=== PATIENT | male | born 1980 | race Hispanic/Latino ===

== ENCOUNTER 2018-07-04 18:22 | Emergency (ER) | payer BC ==
--- OUTSIDE RECORDS SUMMARY | 2018-07-04 18:25 | XMS REPORT ---
:1980 Author Organization eClinicalWorks Care Team Providers Name Role Phone Tidwell, Na Provider Role Unavailable Allergies, Adverse Reactions, Alerts Substance Reaction Event Type Erythromycin Info Not Available Drug Allergy Problems Problem Type Condition Code Onset Dates Condition Status Problem Fatigue R53.83 Active Problem Hyperlipidemia E78.5 Active Problem GERD (gastroesophageal reflux K21.9 Active disease) Problem ADHD (attention deficit F90.2 Active hyperactivity disorder), combined type Problem Other chronic pain G89.29 Active Problem ADD (attention deficit disorder) F90.9 Active Problem Acquired hypothyroidism E03.9 Active Problem ADHD (attention deficit F90.9 Active hyperactivity disorder) Problem Dorsalgia, unspecified M54.9 Active Problem Essential hypertension I10 Active Problem Elevated blood pressure reading in R03.0 Active office with white coat syndrome, without diagnosis of hypertension Problem Cigarette smoker F17.210 Active Problem Multiple joint pain M25.50 Active Assessment ADD (attention deficit disorder) F90.9 Active Problem Obese E66.9 Active Medications Medication Code Code Instructions Start End Status Dosage System Date Date Pravastatin [facility] [place] 76878926435 40 MG Orally Active 1 tablet Sodium Once a day Vyvanse [facility] [place] 74745971970 30 MG Orally Active 1 capsule Once a day in the morning Ultram [facility] [place] 10766092601 50 MG Orally Active 1 tablet every 6 hrs as needed Lisinopril [facility] [place] 24735801137 10 MG Orally Active 1 tablet Once a day Pravachol [facility] [place] 45476010112 NA Active 1 EACH ONCE A DAY (AT BEDTIME) Lisinopril [facility] [place] 37172242501 NA Active 1 TAB PO ONCE A DAY IN AM Protonix ND 17211077792 40 MG Orally Active 1 tablet Once a day Results No Known Results Summary Purpose eClinicalWorks Submission
--- OUTSIDE RECORDS SUMMARY | 2018-07-04 18:25 | XMS REPORT ---
:1980 Author Organization eClinicalWorks Care Team Providers Name Role Phone Tidwell, Laurie Provider Role Unavailable Allergies, Adverse Reactions, Alerts [...] of hypertension Problem Cigarette smoker F17.210 Active Assessment ADHD (attention deficit F90.9 Active hyperactivity disorder) Problem Multiple joint pain M25.50 Active Problem Obese E66.9 Active Medications Medication Code Code Instructions Start End Status Dosage System Date Date Lisinopril [facility] 21649860558 10 MG Orally Active 1 tablet Once a day Pravastatin [facility] 21757140796 40 MG Orally Active 1 tablet Sodium Once a day Lisinopril [facility] 74015920315 NA Active 1 TAB PO ONCE A DAY IN AM Pravachol [facility] 61815334798 NA Active 1 EACH ONCE A DAY (AT BEDTIME) Vyvanse [facility] 39039552087 40 MG Orally February 12, Active 1 capsule Once a day 2017 in the morning Vyvanse [facility] 32417719200 30 MG Orally Active 1 capsule Once a day in the morning Protonix ND 80631673515 40 MG Orally Active 1 tablet Once a day Ultram [facility] 91212244713 50 MG Orally Active 1 tablet every 6 hrs as needed Results No Known Results Summary Purpose eClinicalWorks Submission
--- OUTSIDE RECORDS SUMMARY | 2018-07-04 18:25 | XMS REPORT ---
:1980 Author Organization eClinicalWorks Care Team Providers Name Role Phone Tidwell, Na Provider Role Unavailable Allergies, Adverse Reactions, Alerts Substance Reaction Event Type Erythromycin Info Not Available Drug Allergy Problems Problem Type Condition Code Onset Dates Condition Status Problem Fatigue R53.83 Active Problem Hyperlipidemia E78.5 Active Problem GERD (gastroesophageal reflux K21.9 Active disease) Problem Other chronic pain G89.29 Active Problem Dorsalgia, unspecified M54.9 Active Problem Essential hypertension I10 Active Problem Cigarette smoker F17.210 Active Problem Elevated blood pressure reading in R03.0 Active office with white coat syndrome, without diagnosis of hypertension Problem Acquired hypothyroidism E03.9 Active Problem ADHD (attention deficit F90.9 Active hyperactivity disorder) Assessment Dorsalgia, unspecified M54.9 Active Assessment Other chronic pain G89.29 Active Assessment Essential hypertension I10 Active Assessment Hyperlipidemia E78.5 Active Assessment Acquired hypothyroidism E03.9 Active Problem Multiple joint pain M25.50 Active Assessment ADHD (attention deficit F90.9 Active hyperactivity disorder) Problem Obese E66.9 Active Medications Medication Code Code Instructions Start End Status Dosage System Date [facility] 23286275545 30 MG Orally Active 1 capsule Once a day in the morning Protonix [facility] 26111865146 40 MG Orally Active 1 tablet Once a day Lisinopril [facility] 28514699671 10 MG Orally Active 1 tablet Once a day Pravastatin [facility] 19104410125 40 MG Orally Active 1 tablet Sodium Once a day Ultram [facility] 75627945706 50 MG Orally Active 1 tablet every 6 hrs as needed Levothyroxine ND 50686376406 100 MCG Orally Inactive 1 tablet Sodium Once a day on an empty stomach in the morning Results No Known Results Summary Purpose eClinicalWorks Submission
--- OUTSIDE RECORDS SUMMARY | 2018-07-04 18:25 | XMS REPORT ---
[...] smoker F17.210 Active Assessment ADHD (attention deficit F90.2 Active hyperactivity disorder), combined type Problem Multiple joint pain M25.50 Active Problem Obese E66.9 Active Medications Medication Code Code Instructions Start End Status Dosage System Date Date Pravastatin ND 66102699087 40 MG Orally Active 1 tablet Sodium Once a day Vyvanse [facility] 31565766552 30 MG Orally Active 1 capsule Once a day in the morning Lisinopril ND 53075980437 NA Active 1 TAB PO ONCE A DAY IN AM Vyvanse [facility] 85849417297 40 MG Orally February 12, Active 1 capsule Once a day 2017 in the morning Ultram ND 16964916778 50 MG Orally Active 1 tablet every 6 hrs as needed Protonix ND 51842148116 40 MG Orally Active 1 tablet Once a day Lisinopril ND 25044261000 10 MG Orally Active 1 tablet Once a day Pravachol ND 74597045844 NA Active 1 EACH ONCE A DAY (AT BEDTIME) Results No Known Results Summary Purpose eClinicalWorks Submission
--- OUTSIDE RECORDS SUMMARY | 2018-07-04 18:25 | XMS REPORT ---
[...] pain M25.50 Active Assessment ADHD (attention deficit F90.2 Active hyperactivity disorder), combined type Problem Obese E66.9 Active Medications Medication Code Code Instructions Start End Status Dosage System Date Date Ultram [facility] 04848220966 50 MG Orally Active 1 tablet every 6 hrs as needed Lisinopril [facility] 17844056874 10 MG Orally Active 1 tablet Once a day Vyvanse [facility] 46966826354 30 MG Orally Inactive 1 capsule Once a day in the morning Lisinopril [facility] 61594925793 NA Active 1 TAB PO ONCE A DAY IN AM Pravastatin ND 30359282538 40 MG Orally Active 1 tablet Sodium Once a day Protonix ND 12516771275 40 MG Orally Active 1 tablet Once a day Vyvanse [facility] 49445971869 40 MG Orally February 08, Active 1 capsule Once a day 2017 in the morning Pravachol ND 24103043012 NA Active 1 EACH ONCE A DAY (AT BEDTIME) Results No Known Results Summary Purpose eClinicalWorks Submission
--- OUTSIDE RECORDS SUMMARY | 2018-07-04 18:25 | XMS REPORT ---
[...] M54.9 Active Problem Essential hypertension I10 Active Assessment ADHD (attention deficit F90.9 Active hyperactivity disorder) Assessment Essential hypertension I10 Active Problem Elevated blood pressure reading in R03.0 Active office with white coat syndrome, without diagnosis of hypertension Problem Cigarette smoker F17.210 Active Assessment Hyperlipidemia E78.5 Active Problem Multiple joint pain M25.50 Active Problem Obese E66.9 Active Medications Medication Code Code Instructions Start End Status Dosage System Date Date Pravachol [facility] 03138887016 NA Active 1 EACH ONCE A DAY (AT BEDTIME) Lisinopril [facility] 50165771915 10 MG Orally Active 1 tablet Once a day Ultram [facility] 37104446675 50 MG Orally Active 1 tablet every 6 hrs as needed Protonix ND 07258117558 40 MG Orally Active 1 tablet Once a day Lisinopril ND 42759087723 NA Active 1 TAB PO ONCE A DAY IN AM Vyvanse ND 10068010522 30 MG Orally Active 1 capsule Once a day in the morning Vyvanse ND 06130634031 40 MG Orally February 12, Active 1 capsule Once a day 2017 in the morning Pravastatin ND 85166511206 40 MG Orally Active 1 tablet Sodium Once a day Results No Known Results Summary Purpose eClinicalWorks Submission
[2018-07-04] MEDS ORDERED: DIPHENHYDRAMINE 25 MG TAB/CAP ONE (18:50)
[2018-07-04] MEDS ORDERED: predniSONE 20 MG TAB ONE (18:51)
[2018-07-04] MEDS ORDERED: FAMOTIDINE 20 MG TAB ONE (18:51)
--- NOTE | 2018-07-04 20:36 | EDPHYS ---
Physician Documentation [facility] Name: Chano Zacarias Age: 38 yrs Sex: Male : 1980 Arrival Date: 07/04/2018 Time: 18:27 Bed 5 Private MD: Laurie Tidwell ED Physician Mo Burrell HPI: 07/04 18:38 This 38 yrs old Male presents to ER via Ambulatory with complaints of Rash. cp 18:38 The patient's rash thought to be caused by hives. cp 18:38 The rash is located on the body diffusely. Onset: The symptoms/episode began/occurred cp last night. Associated signs and symptoms: Pertinent positives: burning sensation, Pertinent negatives: difficulty breathing, fever, vomiting. Severity of symptoms: in the emergency department the symptoms are unchanged despite home interventions. Treatment given at home: Benadryl. Historical: - Allergies: 18:31 Droperidol; aj 18:31 erythromycin base; aj - Home Meds: 18:31 pravastatin oral oral [Active]; Lisinopril Oral [Active]; aj - PMHx: 18:31 High Cholesterol; Hypertension; Hypothyroidism; aj - PSHx: 18:31 None; aj - Immunization history:: Adult Immunizations up to date. - Social history:: Smoking status: Patient uses tobacco products, smokes one pack cigarettes per day. - Ebola Screening: : Patient negative for fever greater than or equal to 101.5 degrees Fahrenheit, and additional compatible Ebola Virus Disease symptoms Patient denies exposure to infectious person Patient denies travel to an Ebola-affected area in the 21 days before illness onset No symptoms or risks identified at this time. ROS: 18:45 Constitutional: Negative for body aches, chills, fever, poor PO intake. cp 18:45 Eyes: Negative for injury, pain, redness, and discharge. cp 18:45 Cardiovascular: Negative for chest pain, edema, palpitations. cp 18:45 ENT: Negative for drainage from ear(s), rhinorrhea, sinus congestion, sore throat, cp difficulty swallowing, difficulty handling secretions. 18:45 Respiratory: Negative for cough, shortness of breath, wheezing. 18:45 Abdomen/GI: Negative for abdominal pain, nausea, vomiting, and diarrhea. 18:45 : Negative for urinary symptoms. 18:45 Skin: Positive for rash, diffusely. 18:45 Neuro: Negative for altered mental status, dizziness, headache, weakness. 18:45 All other systems are negative. Exam: 18:50 Constitutional: The patient appears in no acute distress, alert, awake, non-toxic, well cp developed, well nourished. 18:50 Head/Face: Normocephalic, atraumatic. cp 18:50 Eyes: Periorbital structures: appear normal, Pupils: equal, round, and reactive to light and accomodation, Extraocular movements: intact throughout, Conjunctiva: normal, no exudate, no injection, Sclera: no appreciated abnormality, Lids and lashes: appear normal, bilaterally. 18:50 ENT: External ear(s): are unremarkable, Ear canal(s): are normal, clear, TM's: bulging, is not appreciated, bilaterally, dullness, bilaterally, erythema, is not appreciated, bilaterally, Nose: is normal, Mouth: Lips: moist, Oral mucosa: pink and intact, moist, Posterior pharynx: is normal, airway is patent, no erythema, no exudate, swelling, is not appreciated. 18:50 Neck: ROM/movement: is normal, is supple, without pain, no range of motions limitations, no meningismus, no nuchal rigidity. 18:50 Chest/axilla: Palpation: is normal, no crepitus, no tenderness. 18:50 Cardiovascular: Rate: tachycardic, Rhythm: regular, Heart sounds: murmur, not appreciated, Edema: is not appreciated, JVD: is not appreciated. 18:50 Respiratory: the patient does not display signs of respiratory distress, Respirations: normal, no use of accessory muscles, no retractions, no splinting, no tachypnea, labored breathing, is not present, Breath sounds: are clear throughout, no decreased breath sounds, no stridor, no wheezing. 18:50 Abdomen/GI: Inspection: abdomen appears normal, Bowel sounds: active, all quadrants, Palpation: abdomen is soft and non-tender, in all quadrants, rebound tenderness, is not appreciated, voluntary guarding, is not appreciated, involuntary guarding, is not appreciated. 18:50 Skin: consistent with hives, and is diffusely located. 18:50 Neuro: Orientation: to person, place \T\ time. Mentation: is normal, Cerebellar function: is grossly normal, Motor: moves all fours, strength is normal, Sensation: is normal. Vital Signs: 18:31 BP 152 / 100; Pulse 115; Resp 20; Temp 98.0; Pulse Ox 98% on R/A; Weight 95.25 kg; aj Height 5 ft. 6 in. (167.64 cm); 21:01 BP 144 / 95; Pulse 92; Resp 18; Pulse Ox 96% on R/A; Pain 0/10; aa1 18:31 Body Mass Index 33.89 (95.25 kg, 167.64 cm) aj MDM: 18:37 Patient medically screened. cp 20:34 Data reviewed: vital signs, nurses notes, VSS. Patient reports symptoms improved, and cp as a result, I will discharge patient. Administered Medications: 18:38 Drug: predniSONE 60 mg Route: PO; hj 18:46 Follow up: Response: No adverse reaction hj 21:00 Follow up: Response: Marked relief of symptoms aa1 18:38 Drug: Benadryl 25 mg Route: PO; hj 18:46 Follow up: Response: No adverse reaction hj 21:00 Follow up: Response: Marked relief of symptoms aa1 18:38 Drug: Pepcid 20 mg Route: PO; hj 18:46 Follow up: Response: No adverse reaction hj 21:00 Follow up: Response: Marked relief of symptoms aa1 Disposition: 07/04/18 20:35 Discharged to Home. Impression: Hives. - Condition is Stable. - Discharge Instructions: Hives. - Prescriptions for Pepcid 20 mg Oral Tablet - take 1 tablet by ORAL route every 12 hours for 5 days; 10 tablet. Prednisone 20 mg Oral Tablet - take 2 tablet by ORAL route once daily for 5 days; 10 tablet. - Medication Reconciliation Form, Thank You Letter, Antibiotic Education, Prescription Opioid Use form. - Follow up: Private Physician; When: 1 - 2 days; Reason: Recheck today's complaints. - Problem is new. - Symptoms have improved. Signatures: Florencia Smart RN RN aa1 Loretta Burger RN RN aj Mu Bridges RN RN hj Troy Flores PA PA cp Corrections: (The following items were deleted from the chart) 21:03 20:35 07/04/2018 20:35 Discharged to Home. Impression: Hives. Condition is Stable. aa1 Forms are Medication Reconciliation Form, Thank You Letter, Antibiotic Education, Prescription Opioid Use. Follow up: Private Physician; When: 1 - 2 days; Reason: Recheck today's complaints. Problem is new. Symptoms have improved. cp
--- NOTE | 2018-07-04 20:36 | ER ---
Nurse's Notes [facility] Name: Chano Zacarias Age: 38 yrs Sex: Male : 1980 Arrival Date: 07/04/2018 Time: 18:27 Bed 5 Private MD: Laurie Tidwell Diagnosis: Hives Presentation: 07/04 18:29 Presenting complaint: Patient states: Reports hives since last night. Administered aj Benadryl 25 mg PO at 1600 today. Transition of care: patient was not received from another setting of care. Onset of symptoms was July 03, 2018. Risk Assessment: Do you want to hurt yourself or someone else? Patient reports no desire to harm self or others. Initial Sepsis Screen: Does the patient meet any 2 criteria? No. Patient's initial sepsis screen is negative. Does the patient have a suspected source of infection? No. Patient's initial sepsis screen is negative. 18:29 Method Of Arrival: Ambulatory aj 18:29 Acuity: SCARLET 2 aj 18:30 Onset: The symptoms/episode began/occurred yesterday. Anaphylaxis evaluation, no signs aj or symptoms of anaphylaxis were noted. Care prior to arrival: None. Triage Assessment: 18:31 General: Appears in no apparent distress. comfortable, Behavior is calm, cooperative, aj appropriate for age. Pain: Denies pain. EENT: Reports itching in throat. Neuro: Level of Consciousness is awake, alert, obeys commands, Oriented to person, place, time, situation, Appropriate for age. Respiratory: Airway is patent Respiratory effort is even, unlabored, Respiratory pattern is regular, symmetrical, Patient clearing throat. Derm: Skin is normal, Rash noted that is macular, itchy, raised. Historical: - Allergies: 18:31 Droperidol; aj 18:31 erythromycin base; aj - Home Meds: 18:31 pravastatin oral oral [Active]; Lisinopril Oral [Active]; aj - PMHx: 18:31 High Cholesterol; Hypertension; Hypothyroidism; aj - PSHx: 18:31 None; aj - Immunization history:: Adult Immunizations up to date. - Social history:: Smoking status: Patient uses tobacco products, smokes one pack cigarettes per day. - Ebola Screening: : Patient negative for fever greater than or equal to 101.5 degrees Fahrenheit, and additional compatible Ebola Virus Disease symptoms Patient denies exposure to infectious person Patient denies travel to an Ebola-affected area in the 21 days before illness onset No symptoms or risks identified at this time. Screenin:37 Abuse screen: Denies threats or abuse. Denies injuries from another. Nutritional hj screening: No deficits noted. Tuberculosis screening: No symptoms or risk factors identified. Fall Risk None identified. Assessment: 18:37 Respiratory: Airway is patent Respiratory effort is even, unlabored, Respiratory hj pattern is regular, symmetrical, Breath sounds are clear. 18:37 General: Appears in no apparent distress. uncomfortable, Behavior is calm, cooperative, hj appropriate for age. Pain: Denies pain. Neuro: Level of Consciousness is awake, alert, obeys commands, Oriented to person, place, time, situation, Appropriate for age. Cardiovascular: Capillary refill < 3 seconds Patient's skin is warm and dry. GI: No signs and/or symptoms were reported involving the gastrointestinal system. : No signs and/or symptoms were reported regarding the genitourinary system. EENT: No signs and/or symptoms were reported regarding the EENT system. Derm: Reports rash. Musculoskeletal: No signs and/or symptoms reported regarding the musculoskeletal system. 18:53 Reassessment: awaiting POC:. hj 19:30 Reassessment: Patient appears in no apparent distress at this time. Patient and/or aa1 family updated on plan of care and expected duration. Pain level reassessed. Patient is alert, oriented x 3, equal unlabored respirations, skin warm/dry/pink. Per PA, will monitor pt for improvement and d/c when appropriate. 21:01 Reassessment: Patient appears in no apparent distress at this time. Patient is alert, aa1 oriented x 3, equal unlabored respirations, skin warm/dry/pink. Pt reports feeling much better. Rash greatly improved. Discussed d/c \T\ f/u instructions with pt; denies questions or concerns at this time Patient states feeling better. Patient states symptoms have improved. Vital Signs: 18:31 BP 152 / 100; Pulse 115; Resp 20; Temp 98.0; Pulse Ox 98% on R/A; Weight 95.25 kg; aj Height 5 ft. 6 in. (167.64 cm); 21:01 BP 144 / 95; Pulse 92; Resp 18; Pulse Ox 96% on R/A; Pain 0/10; aa1 18:31 Body Mass Index 33.89 (95.25 kg, 167.64 cm) ED Course: 18:27 Patient arrived in ED. mr 18:28 Laurie Tidwell MD is Private Physician. mr 18:30 Triage completed. aj 18:31 Arm band placed on left wrist. Patient placed in an exam room. aj 18:33 Mu Bridges RN is Primary Nurse. hj 18:35 Troy Flores PA is PHCP. cp 18:35 Mo Burrell MD is Attending Physician. cp 18:37 Patient has correct armband on for positive identification. Placed in gown. Bed in low hj position. Call light in reach. Side rails up X 1. Adult w/ patient. 21:01 No provider procedures requiring assistance completed. Patient did not have IV access aa1 during this emergency room visit. Administered Medications: 18:38 Drug: predniSONE 60 mg Route: PO; hj 18:46 Follow up: Response: No adverse reaction hj 21:00 Follow up: Response: Marked relief of symptoms aa1 18:38 Drug: Benadryl 25 mg Route: PO; hj 18:46 Follow up: Response: No adverse reaction hj 21:00 Follow up: Response: Marked relief of symptoms aa1 18:38 Drug: Pepcid 20 mg Route: PO; hj 18:46 Follow up: Response: No adverse reaction hj 21:00 Follow up: Response: Marked relief of symptoms aa1 Outcome: 20:35 Discharge ordered by MD. cp 21:01 Discharged to home ambulatory, with significant other. aa1 21:01 Condition: good 21:01 Discharge instructions given to patient, significant other, Instructed on discharge instructions, follow up and referral plans. medication usage, Demonstrated understanding of instructions, follow-up care, medications, Prescriptions given X 2. 21:03 Patient left the ED. aa1 Signatures: Florencia Smart RN RN aa1 Loretta Burger RN RN aj Rivera, Mary mr Mu Bridges RN RN hj Page, Corey, PA PA cp
[2018-07-04 21:30] VITALS: TEMP 98
[2018-07-04 21:31] VITALS: BP 144/95; O2SAT 96
== END 2018-07-04 21:03 | disposition home or self-care (01) ==
LOC: ER 18:22
DX: L50.9 Urticaria, unspecified (principal); E78.00 Pure hypercholesterolemia, unspecified; I10 Essential (primary) hypertension; E03.9 Hypothyroidism, unspecified; F17.210 Nicotine dependence, cigarettes, uncomplicated; Z79.899 Other long term (current) drug therapy
CPT/HCPCS: 99283; J7512

== ENCOUNTER 2019-05-15 22:11 | Emergency (ER) | payer BC ==
--- OUTSIDE RECORDS SUMMARY | 2019-05-15 22:14 | XMS REPORT ---
:1980 Author Organization eClinicalWorks Care Team Providers Name Role Phone Tidwell, Na Provider Role Unavailable Allergies No Known Allergies Problems Problem Type Condition Code Onset Dates Condition Status Problem Hyperlipidemia E78.5 Active Problem Acquired hypothyroidism E03.9 Active Problem ADHD (attention deficit F90.9 Active hyperactivity disorder) Problem Body mass index (BMI) of 36.0-36.9 Z68.36 Active in adult Problem ADD (attention deficit disorder) F90.9 Active Problem Morbid (severe) obesity due to E66.01 Active excess calories Problem Dorsalgia, unspecified M54.9 Active Problem Essential hypertension I10 Active Problem ADHD (attention deficit F90.2 Active hyperactivity disorder), combined type Problem Other chronic pain G89.29 Active Assessment ADHD (attention deficit F90.9 Active hyperactivity disorder) Problem Multiple joint pain M25.50 Active Problem Obese E66.9 Active Problem Elevated blood pressure reading in R03.0 Active office with white coat syndrome, without diagnosis of hypertension Problem Fatigue R53.83 Active Problem Cigarette smoker F17.210 Active Problem GERD (gastroesophageal reflux K21.9 Active disease) Medications Medication Code Code Instructions Start End Status Dosage System Date Date Rosuvastatin [facility] 74409834373 10 MG Orally Apr 01, Active 1 tablet Calcium Once a day 2018 Metoprolol ND 25026650916 50 MG Orally Active 1 tablet Tartrate Twice a day with food Bystolic ND 09185391085 10 MG Orally Active 1 tablet Once a day Ultram [facility] 59128404958 50 MG Orally Active 1 tablet every 6 hrs as needed Vyvanse ND 32827555778 40 MG Orally May 13, Active 1 capsule Once a day 2019 in the morning Lisinopril ND 68523918868 10 MG Orally Active 1 tablet Once a day Protonix [facility] 60284335030 40 MG Orally Active 1 tablet Once a day Results No Known Results Summary Purpose eClinicalWorks Submission
[2019-05-15] MEDS ORDERED: NA CHLORIDE 0.9% 1,000 ML ONE ×2 (22:36→22:52)
[2019-05-15] MEDS ORDERED: ONDANSETRON 4 MG/2 ML VIAL ONE (22:36)
[2019-05-15] MEDS ORDERED: MORPHINE 4 MG/ML SYR ONE (22:36)
[2019-05-15] MEDS ORDERED: KETOROLAC 30 MG/ML INJ ONE (22:54)
[2019-05-15 22:57] LABS: Absolute Lymphocytes (CBC) 3.7 K/uL (0.7-4.9); Basophils % 0.8 % (0-1.3); Hematocrit 41.6 % (39.6-49.0); Lymphocytes % 34.3 % (15.3-44.8); MPV 8.3 fL (7.6-11.3); RBC Red Blood Cell Count 4.76 M/uL (4.33-5.43)
[2019-05-15 23:17] LABS: ALT/SGPT 39 U/L (12-78); AST/SGOT 24 U/L (15-37); Alkaline Phosphatase 94 U/L (45-117); BUN Blood Urea Nitrogen 8 mg/dL (7-18); Bicarbonate 26 mmol/L (21-32); Bilirubin Direct < 0.1 mg/dL (0-0.2); Bilirubin Total 0.2 mg/dL (0.2-1.0); Glucose Level 109 mg/dL (74-106); Lipase 99 U/L (73-393); Potassium 3.7 mmol/L (3.5-5.1); Protein, Total 7.6 g/dL (6.4-8.2); Sodium Level 142 mmol/L (136-145)
[2019-05-15] MEDS ORDERED: HYDROMORPHONE HCL 1 MG/ML INJ ONE (23:35)
--- NOTE | 2019-05-15 23:58 | ER ---
Nurse's Notes [facility] Name: Chano Zacarias Age: 39 yrs Sex: Male : 1980 Arrival Date: 05/15/2019 Time: 22:19 Bed 15 Private MD: Diagnosis: Calculus of ureter-Right Presentation: 05/15 22:20 Presenting complaint: Patient states: he is having right flank pain radiating to his bb abdomen for 15 minutes the pain is severe 10/10. Transition of care: patient was not received from another setting of care. Onset of symptoms was May 15, 2019. Risk Assessment: Do you want to hurt yourself or someone else? Patient reports no desire to harm self or others. Initial Sepsis Screen: Does the patient meet any 2 criteria? No. Patient's initial sepsis screen is negative. Does the patient have a suspected source of infection? No. Patient's initial sepsis screen is negative. Care prior to arrival: None. 22:20 Method Of Arrival: Wheelchair bb 22:20 Acuity: SCARLET 3 bb Historical: - Allergies: 22:22 Droperidol; bb 22:22 erythromycin base; bb - Home Meds: 22:22 lisinopril Oral [Active]; pravastatin Oral [Active]; Vyvanse oral oral [Active]; bb - PMHx: 22:22 High Cholesterol; Hypertension; ADD/ADHD; bb - PSHx: 22:22 None; bb - Immunization history:: Adult Immunizations up to date. - Social history:: Smoking status: Patient uses tobacco products, smokes one-half pack cigarettes per day, Patient/guardian denies using alcohol. - Ebola Screening: : No symptoms or risks identified at this time. Screenin:30 Abuse screen: Denies threats or abuse. Nutritional screening: No deficits noted. jb4 Tuberculosis screening: No symptoms or risk factors identified. Fall Risk IV access (20 points). Gait- Weak (10 pts.). Total Andrews Fall Scale indicates Low Risk Score (25-44 pts). Fall prevention measures have been instituted. Side Rails Up X 2 Placed close to Nursing Station Frequent Obs/Assesments occuring Family Present and informed to notify staff if they need to leave bedside As available Patient and Family Educated on Fall Prevention Program and strategies. Assessment: 22:30 General: Appears in no apparent distress. uncomfortable, Behavior is calm, cooperative, jb4 appropriate for age. Pain: Complains of pain in anterior aspect of right lateral abdomen Pain does not radiate. Pain currently is 8 out of 10 on a pain scale. Quality of pain is described as stabbing. Neuro: Level of Consciousness is awake, alert, obeys commands, Oriented to person, place, time, situation. Cardiovascular: Patient's skin is warm and dry. Respiratory: Airway is patent Respiratory effort is even, unlabored, Respiratory pattern is regular, symmetrical. GI:. GI: No deficits noted. No signs and/or symptoms were reported involving the gastrointestinal system. : Reports pain in right flank(s). EENT: No deficits noted. No signs and/or symptoms were reported regarding the EENT system. Derm: Skin is intact, Skin is pink, warm \T\ dry. Musculoskeletal: Circulation, motion, and sensation intact. Range of motion: intact in all extremities. 23:51 Reassessment: Patient appears in no apparent distress at this time. Patient and/or jb4 family updated on plan of care and expected duration. Pain level reassessed. Patient is alert, oriented x 3, equal unlabored respirations, skin warm/dry/pink. D/c pending lab results. Patient states feeling better. 05/16 00:47 Reassessment: Patient appears in no apparent distress at this time. Patient and/or jb4 family updated on plan of care and expected duration. Pain level reassessed. Patient is alert, oriented x 3, equal unlabored respirations, skin warm/dry/pink. Pt verbalized understanding of d/c and follow up instructions. assisted to vehicle via wheelchair. Patient states feeling better. Vital Signs: 05/15 22:22 BP 158 / 100; Pulse 106; Resp 18 S; Temp 98(O); Pulse Ox 98% on R/A; Weight 97.52 kg bb (R); Height 5 ft. 5 in. (165.10 cm) (R); Pain 10/10; 22:52 BP 139 / 82; Pulse 95; Resp 16; Pulse Ox 98% on R/A; jb4 23:36 BP 143 / 78; Pulse 97; Resp 16; Pulse Ox 97% on R/A; jb4 23:45 BP 136 / 71; Pulse 97; Resp 16; Pulse Ox 98% on R/A; jb4 05/16 00:47 BP 124 / 83; Pulse 82; Resp 16; Pulse Ox 97% on R/A; jb4 05/15 22:22 Body Mass Index 35.78 (97.52 kg, 165.10 cm) bb ED Course: 05/15 22:19 Patient arrived in ED. bb 22:20 Mustapha Isbell, OXYHYDROGEN WELDER is PHCP. pm1 22:20 Deny Rain MD is Attending Physician. pm1 22:21 Triage completed. bb 22:22 Arm band placed on Patient placed in an exam room, on a stretcher, on pulse oximetry. bb Family accompanied patient. 22:30 Patient has correct armband on for positive identification. Placed in gown. Bed in low jb4 position. Call light in reach. Side rails up X 1. Pulse ox on. NIBP on. 22:31 Jin Diaz RN is Primary Nurse. jb4 22:34 Inserted saline lock: 20 gauge in left antecubital area, using aseptic technique. bb 22:34 Missed attempt(s): 22 gauge in right upper arm. Bleeding controlled, band aid applied, jb5 catheter tip intact. 22:34 Missed attempt(s): 20 gauge in right antecubital area. Bleeding controlled, band aid jb5 applied, catheter tip intact. 22:46 CT completed. Patient tolerated procedure well. Patient moved back from CT. bq 22:58 CT Stone Protocol In Process Unspecified. EDMS 23:52 Sam Izaguirre MD is Referral Physician. pm1 05/16 00:50 No provider procedures requiring assistance completed. IV discontinued, intact, jb4 bleeding controlled, No redness/swelling at site. Pressure dressing applied. Administered Medications: 05/15 22:39 Drug: Zofran 4 mg Route: IVP; Site: left antecubital; jb4 23:00 Follow up: Response: No adverse reaction; Nausea is decreased jb4 22:41 Drug: morphine 4 mg {Note: rass score 1.} Route: IVP; Site: left antecubital; jb4 22:55 Follow up: Response: No adverse reaction; Pain is unchanged, physician notified; RASS: jb4 Restless (+1) 22:53 Drug: NS 0.9% 1000 ml Route: IV; Rate: 1000 ml; Site: left antecubital; jd3 23:00 Drug: TORadol 30 mg Route: IVP; Site: left antecubital; jb4 23:30 Follow up: Response: No adverse reaction; Pain is decreased jb4 23:40 Drug: Dilaudid 1 mg {Note: Rass score 1.} Route: IVP; Site: left antecubital; jb4 23:48 Follow up: Response: No adverse reaction; Pain is decreased; RASS: Alert and Calm (0) jb4 05/16 00:17 Drug: Flomax 0.4 mg Route: PO; jb4 00:46 Follow up: Response: No adverse reaction jb4 Outcome: 05/15 23:57 Discharge ordered by MD. pm1 05/16 00:50 Discharged to home via wheelchair, with family. jb4 Condition: stable Discharge instructions given to patient, family, Instructed on discharge instructions, follow up and referral plans. medication usage, Demonstrated understanding of instructions, follow-up care, medications, Prescriptions given X 4. 00:50 Patient left the ED. jb4 Signatures: Dispatcher [employer] EDMS Jeanette Mascorro Brenda, RN RN bb Mustapha Isbell, APOLONIA OXYHYDROGEN WELDER pm1 Jin Diaz RN RN jb4 Siobhan Park jb5 Troy Coe RN RN jd3 Corrections: (The following items were deleted from the chart) 05/15 22:35 22:34 Missed attempt(s): 22 gauge Bleeding controlled, band aid applied, catheter tip jb5 intact. jb5 05/16 00:28 05/15 23:51 Reassessment: Patient appears in no apparent distress at this time. Patient jb4 and/or family updated on plan of care and expected duration. Pain level reassessed. Patient is alert, oriented x 3, equal unlabored respirations, skin warm/dry/pink. Patient states feeling better. jb4
--- NOTE | 2019-05-15 23:58 | EDPHYS ---
Physician Documentation [facility] Name: Chano Zacarias Age: 39 yrs Sex: Male : 1980 Arrival Date: 05/15/2019 Time: 22:19 Bed 15 Private MD: ED Physician Deny Rain HPI: 05/15 22:30 This 39 yrs old Male presents to ER via Wheelchair with complaints of Possible pm1 Kidney Stone. 22:30 The patient complains of pain in the right low back. The pain does not radiate. Onset: pm1 The symptoms/episode began/occurred 2 hour(s) ago. Modifying factors: The symptoms are alleviated by nothing. the symptoms are aggravated by nothing. Associated signs and symptoms: Pertinent positives: nausea, Pertinent negatives: dysuria, fever, vomiting. Severity of pain: in the emergency department the pain is actually worse. The patient has experienced similar episodes in the past, a few times, and the symptoms today are exactly the same, to previous kidney stones. The patient has not recently seen a physician. Historical: - Allergies: 22:22 Droperidol; bb 22:22 erythromycin base; bb - Home Meds: 22:22 lisinopril Oral [Active]; pravastatin Oral [Active]; Vyvanse oral oral [Active]; bb - PMHx: 22:22 High Cholesterol; Hypertension; ADD/ADHD; bb - PSHx: 22:22 None; bb - Immunization history:: Adult Immunizations up to date. - Social history:: Smoking status: Patient uses tobacco products, smokes one-half pack cigarettes per day, Patient/guardian denies using alcohol. - Ebola Screening: : No symptoms or risks identified at this time. ROS: 22:30 Constitutional: Negative for fever, chills, and weight loss, Eyes: Negative for injury, pm1 pain, redness, and discharge, ENT: Negative for injury, pain, and discharge, Neck: Negative for injury, pain, and swelling, Cardiovascular: Negative for chest pain, palpitations, and edema, Respiratory: Negative for shortness of breath, cough, wheezing, and pleuritic chest pain. 22:30 : Negative for injury, bleeding, discharge, and swelling, MS/Extremity: Negative for injury and deformity, Skin: Negative for injury, rash, and discoloration, Neuro: Negative for headache, weakness, numbness, tingling, and seizure. 22:30 Abdomen/GI: Positive for nausea, Negative for abdominal pain, vomiting, diarrhea. 22:30 Back: Positive for flank pain, on the right. Exam: 22:30 Constitutional: This is a well developed, well nourished patient who is awake, alert, pm1 and in no acute distress. Head/Face: Normocephalic, atraumatic. Neck: Trachea midline, no thyromegaly or masses palpated, and no cervical lymphadenopathy. Supple, full range of motion without nuchal rigidity, or vertebral point tenderness. No Meningismus. Chest/axilla: Normal chest wall appearance and motion. Nontender with no deformity. No lesions are appreciated. Cardiovascular: Regular rate and rhythm with a normal S1 and S2. No gallops, murmurs, or rubs. Normal PMI, no JVD. No pulse deficits. Respiratory: Lungs have equal breath sounds bilaterally, clear to auscultation and percussion. No rales, rhonchi or wheezes noted. No increased work of breathing, no retractions or nasal flaring. Abdomen/GI: Soft, non-tender, with normal bowel sounds. No distension or tympany. No guarding or rebound. No evidence of tenderness throughout. 22:30 Skin: Warm, dry with normal turgor. Normal color with no rashes, no lesions, and no evidence of cellulitis. MS/ Extremity: Pulses equal, no cyanosis. Neurovascular intact. Full, normal range of motion. 22:30 Back: normal spinal alignment noted, CVA tenderness, that is moderate, is noted on the right. 22:30 Neuro: Orientation: is normal, Motor: is normal, moves all fours. Vital Signs: 22:22 BP 158 / 100; Pulse 106; Resp 18 S; Temp 98(O); Pulse Ox 98% on R/A; Weight 97.52 kg bb (R); Height 5 ft. 5 in. (165.10 cm) (R); Pain 10/10; 22:52 BP 139 / 82; Pulse 95; Resp 16; Pulse Ox 98% on R/A; jb4 23:36 BP 143 / 78; Pulse 97; Resp 16; Pulse Ox 97% on R/A; jb4 23:45 BP 136 / 71; Pulse 97; Resp 16; Pulse Ox 98% on R/A; jb4 05/16 00:47 BP 124 / 83; Pulse 82; Resp 16; Pulse Ox 97% on R/A; jb4 05/15 22:22 Body Mass Index 35.78 (97.52 kg, 165.10 cm) bb MDM: 05/15 22:22 Patient medically screened. pm1 23:51 Data reviewed: vital signs. Data interpreted: Pulse oximetry: on room air is 98 %. pm1 Interpretation: normal. Counseling: I had a detailed discussion with the patient and/or guardian regarding: the historical points, exam findings, and any diagnostic results supporting the discharge/admit diagnosis, lab results, radiology results, the need for outpatient follow up, for definitive care, a urologist, to return to the emergency department if symptoms worsen or persist or if there are any questions or concerns that arise at home. 05/15 22:23 Order name: Basic Metabolic Panel; Complete Time: 23:30 pm1 05/15 22:23 Order name: CBC with Diff; Complete Time: 23:17 pm1 05/15 22:23 Order name: Creatinine for Radiology; Complete Time: 23:30 pm1 05/15 22:23 Order name: Hepatic Function; Complete Time: 23:30 pm1 05/15 22:23 Order name: Lipase; Complete Time: 23:30 pm1 05/15 22:23 Order name: CT Stone Protocol pm1 05/15 22:23 Order name: IV Saline Lock; Complete Time: 22:34 pm1 05/15 22:23 Order name: Labs collected and sent; Complete Time: 22:34 pm1 Administered Medications: 22:39 Drug: Zofran 4 mg Route: IVP; Site: left antecubital; jb4 23:00 Follow up: Response: No adverse reaction; Nausea is decreased jb4 22:41 Drug: morphine 4 mg {Note: rass score 1.} Route: IVP; Site: left antecubital; jb4 22:55 Follow up: Response: No adverse reaction; Pain is unchanged, physician notified; RASS: jb4 Restless (+1) 22:53 Drug: NS 0.9% 1000 ml Route: IV; Rate: 1000 ml; Site: left antecubital; jd3 23:00 Drug: TORadol 30 mg Route: IVP; Site: left antecubital; 4 23:30 Follow up: Response: No adverse reaction; Pain is decreased jb4 23:40 Drug: Dilaudid 1 mg {Note: Rass score 1.} Route: IVP; Site: left antecubital; 4 23:48 Follow up: Response: No adverse reaction; Pain is decreased; RASS: Alert and Calm (0) [facility] 05/16 00:17 Drug: Flomax 0.4 mg Route: PO; [facility] 00:46 Follow up: Response: No adverse reaction [facility] Disposition: 06:06 Co-signature as Attending Physician, Deny Rain MD I agree with the assessment and 4 plan of care. Disposition: 05/15/19 23:57 Discharged to Home. Impression: Calculus of ureter - Right. - Condition is Stable. - Discharge Instructions: Kidney Stones, Dietary Guidelines to Help Prevent Kidney Stones. - Prescriptions for Zofran 4 mg Oral Tablet - take 1 tablet by ORAL route every 12 hours As needed; 20 tablet. Flomax 0.4 mg Oral Capsule, Sust. Release 24 hr - take 1 capsule by ORAL route once daily 1/2 hour following the same meal each day; 30 capsule. Tramadol 50 mg Oral Tablet - take 1 tablet by ORAL route every 8 hours as needed; 12 tablet. Cipro 500 mg Oral Tablet - take 1 tablet by ORAL route every 12 hours for 7 days; 14 tablet. - Medication Reconciliation Form, Thank You Letter, Antibiotic Education, Prescription Opioid Use form. - Follow up: Emergency Department; When: As needed; Reason: Worsening of condition. Follow up: Sam Izaguirre MD; When: 2 - 3 days; Reason: Recheck today's complaints, Continuance of care, Re-evaluation by your physician. - Problem is new. - Symptoms have improved. Signatures: Dispatcher [employer] EDMS Blanca Karimi RN RN bb Marinas, Patrick, APOLONIA INTEGRATION DIRECTOR pm1 Jin Diaz RN RN jb4 Troy Coe RN RN jd3 Wadley, Terrence, MD MD tw4 Corrections: (The following items were deleted from the chart) 00:46 05/15 23:59 Urine Dipstick-Ancillary ordered. pm1 4 05/16 00:50 05/15 23:57 05/15/2019 23:57 Discharged to Home. Impression: Calculus of ureter - jb4 Right. Condition is Stable. Forms are Medication Reconciliation Form, Thank You Letter, Antibiotic Education, Prescription Opioid Use. Follow up: Emergency Department; When: As needed; Reason: Worsening of condition. Follow up: Sam Izaguirre; When: 2 - 3 days; Reason: Recheck today's complaints, Continuance of care, Re-evaluation by your physician. Problem is new. Symptoms have improved. pm1
[2019-05-15] MEDS ORDERED: TAMSULOSIN 0.4 MG SR CAP ONE (23:59)
[2019-05-16 01:39] VITALS: TEMP 98
[2019-05-16 01:43] VITALS: BP 124/83; O2SAT 97
--- NOTE | 2019-05-16 10:00 | RAD REPORT ---
EXAM DESCRIPTION: Stone Protocol CLINICAL HISTORY: Right flank pain. Assess for obstructive uropathy. TECHNIQUE: CT scan of the abdomen and pelvis was performed without intravenous contrast. Stone scooter col was utilized. 2.5 mm axial images were obtained along with coronal and sagittal reformatted image s. DOSE OPTIMIZATION: This facility uses dose optimization techniques as appropriate to perform exams, including at least one of the following techniques: 1. Automated exposure control. 2. Adjustment of the mA and/or kV according to patient size (this includes techniques or standardized protocols for targeted exams where dose is matched to the indication/reason for exam, i.e. extremiti es or head). 3. Use of iterative reconstructive technique. COMPARISON: None. FINDINGS: Lung Bases: Normal. Liver: Normal. Spleen: Normal. Pancreas: Normal. Gallbladder: Normal. Adrenal Glands: Normal. Right Kidney: There is mild hydroureteronephrosis secondary to a partially obstructing stone in the p roximal right ureter at the L2-L3 interspace level. The stone measures 0.3 x 0.2 cm. Left Kidney: Normal. Right Ureter: Normal. Left Ureter: Normal. Urinary Bladder: Normal. Retroperitoneal Structures: There is minimal atherosclerosis of the abdominal aorta. Bowel Survey: There is a moderate amount of residual stool within the ascending, transverse, and sigmoid colon. The distal ileum is unremarkable. The appendix is unremarkable. Prostate Gland: Normal in size. Peritoneal Cavity: Normal. Mesenteric Structures: Normal. Abdominal Wall: No hernia. Bony Structures: No suspicious lesions. IMPRESSION: 1. Mild right hydroureteronephrosis secondary to a small partially obstructing stone in the proximal right ureter. 2. Moderate amount residual stool within the ascending, transverse, and sigmoid colon. Electronically signed by: Hardeep García MD 05/15/2019 11:15 PM CDT Due to temporary technical issues with the PACS/Fluency reporting system, reports are being signed by the in house radiologist as a courtesy to ensure prompt reporting. The interpreting radiologist is f ully responsible for the content of the report.
== END 2019-05-16 00:50 | disposition home or self-care (01) ==
LOC: ER 22:11
DX: N20.1 Calculus of ureter (principal); Z87.442 Personal history of urinary calculi; I10 Essential (primary) hypertension; E78.5 Hyperlipidemia, unspecified; F17.210 Nicotine dependence, cigarettes, uncomplicated; Z88.3 Allergy status to other anti-infective agents; Z88.8 Allergy status to other drugs, medicaments and biological substances
CPT/HCPCS: 85025; 80048; 36415; 80076; 83690; 76377; 74176; 96375; 96374; 99284; J1170; J7030 ×2; J2405

== ENCOUNTER 2019-05-18 09:03 | Observation (INO) | payer BC ==
[2019-05-18] MEDS ORDERED: ONDANSETRON 4 MG/2 ML VIAL ONE ×2 (09:26→16:12)
[2019-05-18] MEDS ORDERED: NA CHLORIDE 0.9% 1,000 ML ONE ×2 (09:26→17:17)
[2019-05-18] MEDS ORDERED: MORPHINE 4 MG/ML SYR ONE (09:26)
[2019-05-18 09:32] LABS: Absolute Lymphocytes (CBC) 2.7 K/uL (0.7-4.9); Basophils % 0.8 % (0-1.3); Hematocrit 43.1 % (39.6-49.0); Lymphocytes % 29.4 % (15.3-44.8); MPV 7.8 fL (7.6-11.3)
[2019-05-18 09:55] LABS: Albumin 4.2 g/dL (3.4-5.0); Bilirubin Direct 0.1 mg/dL (0-0.2); Bilirubin Total 0.3 mg/dL (0.2-1.0); Potassium 3.8 mmol/L (3.5-5.1)
--- NOTE | 2019-05-18 10:46 | RAD REPORT ---
EXAM DESCRIPTION: CT - Stone Protocol - 05/18/2019 10:32 am CLINICAL HISTORY: Flank pain. right flank pain COMPARISON: Stone Protocol dated 05/15/2019 TECHNIQUE: Axial images were obtained without oral or IV contrast. Lack of contrast limits solid org an and vascular assessment. The [id number] spans the entirety of the system partially obscuring uppermost abdomen and lung bases. Coronal reformatted images were obtained and reviewed. All CT scans are performed using dose optimization technique as appropriate and may include automated exposure control or mA/KV adjustment according to patient size. FINDINGS: The lower lung aly are clear. Imaged portions of the liver and spleen show no suspicious findings on non-contrast imaging. The panc reas and adrenal glands are normal. No pathologic lymphadenopathy in the abdomen or pelvis. 4 mm calculus is present in the proximal right ureter resulting in mild right hydronephrosis. This ap pears essentially unchanged in position relative to the prior study. No left-sided stone or hydroneph rosis seen. No bowel obstruction, free air, free fluid or abscess. Normal appendix noted. No significant bony abnormality. IMPRESSION: 4 mm calculus proximal right ureter with mild right hydronephrosis. No real change has o ccurred in the position of this calculus since the comparative study.
--- NOTE | 2019-05-18 11:08 | ER ---
Nurse's Notes [facility] Name: Chano Zacarias Age: 39 yrs Sex: Male : 1980 Arrival Date: 05/18/2019 Time: 09:04 Bed 14 Private MD: Laurie Tidwell Diagnosis: Right renal calculus in the proximal ureter with mild right hydronephrosis. Failed outpatient treatment Presentation: 05/18 09:14 Presenting complaint: Patient states: i was here Thursday with a kidney stone, i got some tw2 relief yesterday was a really good day, then this morning about 40 minutes ago the pain came back on my RIGHT side, i dont know if i have multiple kidney stones or what. Transition of care: patient was not received from another setting of care. Onset of symptoms was May 18, 2019. Risk Assessment: Do you want to hurt yourself or someone else? Patient reports no desire to harm self or others. Initial Sepsis Screen: Does the patient meet any 2 criteria? No. Patient's initial sepsis screen is negative. Does the patient have a suspected source of infection? No. Patient's initial sepsis screen is negative. Care prior to arrival: None. 09:14 Method Of Arrival: Ambulatory tw 09:14 Acuity: SCARLET 3 tw2 09:15 Note "i did take some flomax this morning". tw2 Triage Assessment: 09:20 General: Appears uncomfortable, Behavior is calm, cooperative, appropriate for age. tw2 Pain: Complains of pain in right lower quadrant Pain radiates to right mid back and right low back. EENT: No signs and/or symptoms were reported regarding the EENT system. Neuro: Level of Consciousness is awake, alert, obeys commands, Oriented to person, place, time, situation. Cardiovascular: Heart tones S1 S2 Capillary refill < 3 seconds. Respiratory: Airway is patent Respiratory effort is even, unlabored, Respiratory pattern is regular, symmetrical, Breath sounds are clear bilaterally. GI: Abdomen is flat, Bowel sounds present X 4 quads. Reports lower abdominal pain, nausea. : No signs and/or symptoms were reported regarding the genitourinary system. Derm: Skin is clammy. Musculoskeletal: Range of motion: intact in all extremities. Historical: - Allergies: 09:18 Droperidol; tw2 09:18 erythromycin base; tw2 - Home Meds: 09:18 Vyvanse Oral [Active]; pravastatin Oral [Active]; lisinopril Oral [Active]; Tramadol tw2 Oral [Active]; Flomax Oral [Active]; - PMHx: 09:18 Hypertension; High Cholesterol; ADD/ADHD; tw2 - PSHx: 09:18 None; tw2 - Immunization history:: Adult Immunizations. - Social history:: Patient uses Smoking status: . - Ebola Screening: : Patient denies travel to an Ebola-affected area in the 21 days before illness onset. Screenin:18 Abuse screen: Denies threats or abuse. Nutritional screening: No deficits noted. tw2 Tuberculosis screening: No symptoms or risk factors identified. Fall Risk None identified. Assessment: 09:05 General: Appears uncomfortable, Behavior is calm, cooperative, appropriate for age. tw2 Pain: Complains of pain in abdomen and right low back and right mid back. Neuro: Level of Consciousness is awake, alert, obeys commands, Oriented to person, place, time, situation. Cardiovascular: Heart tones S1 S2 Patient's skin is warm and dry. Respiratory: Airway is patent Respiratory effort is even, unlabored, Respiratory pattern is regular, symmetrical, Breath sounds are clear bilaterally. GI: Bowel sounds present X 4 quads. Abd is soft and non tender X 4 quads. Reports lower abdominal pain, upper abdominal pain. : No signs and/or symptoms were reported regarding the genitourinary system. EENT: No signs and/or symptoms were reported regarding the EENT system. Derm: No signs and/or symptoms reported regarding the dermatologic system. Musculoskeletal: No signs and/or symptoms reported regarding the musculoskeletal system. Range of motion: intact in all extremities. 10:22 Reassessment: Patient appears in no apparent distress at this time. Patient is alert, sg oriented x 3, equal unlabored respirations, skin warm/dry/pink. 11:49 Reassessment: Patient appears in no apparent distress at this time. Patient and/or sg family updated on plan of care and expected duration. Pain level reassessed. Patient is alert, oriented x 3, equal unlabored respirations, skin warm/dry/pink. pt family/friend at bedside at this time Patient states feeling better. Vital Signs: 09:16 BP 166 / 97; Pulse 94; Resp 18; Temp 98.7(O); Pulse Ox 97% on R/A; Weight 97.52 kg (R); tw2 Height 5 ft. 5 in. (165.10 cm); Pain 9/10; 12:00 BP 126 / 85; Pulse 73; Resp 17; Temp 98.7; Pulse Ox 98% on R/A; Pain 3/10; sg 13:00 BP 113 / 69; Pulse 73; Resp 17; Pulse Ox 97% on R/A; sg 09:16 Body Mass Index 35.78 (97.52 kg, 165.10 cm) tw2 ED Course: 09:04 Patient arrived in ED. as 09:04 Laurie Tidwell MD is Private Physician. as 09:08 Iain Schmidt MD is Attending Physician. kdr 09:12 Verna Harris, RN is Primary Nurse. tw2 09:14 Bed in low position. Call light in reach. Pulse ox on. NIBP on. tw2 09:15 Triage completed. tw2 09:17 Arm band placed on. tw2 09:19 Initial lab(s) drawn, by ia, sent to lab. Inserted saline lock: 20 gauge in left dh3 antecubital area, using aseptic technique. Blood collected. 10:00 Report given to NITIN Sahu. tw2 10:17 Primary Nurse role handed off by Verna Harris RN sg 10:17 Luis Alberto Kidd, RN is Primary Nurse. sg 10:35 CT Stone Protocol In Process Unspecified. EDMS 11:06 Cee Blank MD is Hospitalizing Provider. kdr 14:13 No provider procedures requiring assistance completed. Patient admitted, IV remains in sg place. intact, No redness/swelling at site. Administered Medications: : Drug: Zofran 4 mg Route: IVP; Site: left antecubital; tw2 10:21 Follow up: Response: No adverse reaction sg : Drug: NS 0.9% 1000 ml Route: IV; Rate: 1 bolus; Site: left antecubital; tw2 09:28 Drug: morphine 4 mg Route: IVP; Site: left antecubital; tw2 10:21 Follow up: Response: No adverse reaction; Pain is decreased; RASS: Alert and Calm (0) sg 11:19 Drug: fentaNYL (PF) 50 mcg Route: IVP; Site: left antecubital; sg 12:00 Follow up: Response: No adverse reaction; Pain is decreased; RASS: Alert and Calm (0) sg Outcome: 11:07 Decision to Hospitalize by Provider. kdr 14:13 Admitted to Med/surg accompanied by tech, via wheelchair, room 204, with chart, Report sg called to NITIN Marquez 14:13 Condition: good 14:13 Instructed on the need for admit, safety practices. 14:18 Patient left the ED. bd Signatures: Dispatcher [employer] EDMS Cynthia Krueger Steven, RN RN sg Iain Schmidt MD MD kdr Martinez, Amelia as Wise, Tara, RN RN tw2 Aneesh, Aubree [facility]
--- NOTE | 2019-05-18 11:09 | EDPHYS ---
Physician Documentation [facility] Name: Chano Zacarias Age: 39 yrs Sex: Male : 1980 Arrival Date: 05/18/2019 Time: 09:04 Bed 14 Private MD: Laurie Tidwell ED Physician Iain Schmidt HPI: 05/18 10:54 This 39 yrs old Male presents to ER via Ambulatory with complaints of Possible kdr Kidney Stone. 10:54 The patient complains of pain in the right mid back. The pain does not radiate. Onset: kdr The symptoms/episode began/occurred suddenly, just prior to arrival. Modifying factors: The symptoms are alleviated by nothing. the symptoms are aggravated by palpation/percussion, food/fluids. Associated signs and symptoms: Pertinent positives: nausea. Severity of pain: At its worst the pain was mild moderate just prior to arrival, in the emergency department the pain is actually worse mildly. The patient has experienced similar episodes in the past, The patient has had several numerous kidney stones. Was recently here (Thursday) for the same problem. The patient has been recently seen at the [facility] Emergency Department, this week. Historical: - Allergies: 09:18 Droperidol; tw2 09:18 erythromycin base; tw2 - Home Meds: 09:18 Vyvanse Oral [Active]; pravastatin Oral [Active]; lisinopril Oral [Active]; Tramadol tw2 Oral [Active]; Flomax Oral [Active]; - PMHx: 09:18 Hypertension; High Cholesterol; ADD/ADHD; tw2 - PSHx: 09:18 None; tw2 - Immunization history:: Adult Immunizations. - Social history:: Patient uses Smoking status: . - Ebola Screening: : Patient denies travel to an Ebola-affected area in the 21 days before illness onset. ROS: 10:54 Constitutional: Negative for fever, chills, and weight loss, Eyes: Negative for injury, kdr pain, redness, and discharge, ENT: Negative for injury, pain, and discharge, Neck: Negative for injury, pain, and swelling, Cardiovascular: Negative for chest pain, palpitations, and edema, Respiratory: Negative for shortness of breath, cough, wheezing, and pleuritic chest pain, Back: Negative for injury and pain, : Negative for injury, bleeding, discharge, and swelling, MS/Extremity: Negative for injury and deformity, Skin: Negative for injury, rash, and discoloration, Neuro: Negative for headache, weakness, numbness, tingling, and seizure activity. Psych: Negative for depression, anxiety, suicide ideation, homicidal ideation, and hallucinations, Allergy/Immunology: Negative for hives, rash, and allergies, Endocrine: Negative for neck swelling, polydipsia, polyuria, polyphagia, and marked weight changes, Hematologic/Lymphatic: Negative for swollen nodes, abnormal bleeding, and unusual bruising. 10:54 Abdomen/GI: Positive for nausea, Negative for abdominal pain, diarrhea, abdominal cramps, abdominal distension, dysphagia, hematemesis, black/tarry stool, rectal pain, rectal bleeding, bowel incontinence. Exam: 10:54 Constitutional: This is a well developed, well nourished patient who is awake, alert, kdr and in no acute distress. Head/Face: Normocephalic, atraumatic. Eyes: Pupils equal round and reactive to light, extra-ocular motions intact. Lids and lashes normal. Conjunctiva and sclera are non-icteric and not injected. Cornea within normal limits. Periorbital areas with no swelling, redness, or edema. Neck: Trachea midline, no thyromegaly or masses palpated, and no cervical lymphadenopathy. Supple, full range of motion without nuchal rigidity, or vertebral point tenderness. No Meningismus. Chest/axilla: Normal chest wall appearance and motion. Nontender with no deformity. No lesions are appreciated. Cardiovascular: Regular rate and rhythm with a normal S1 and S2. No gallops, murmurs, or rubs. Normal PMI, no JVD. No pulse deficits. Respiratory: Lungs have equal breath sounds bilaterally, clear to auscultation and percussion. No rales, rhonchi or wheezes noted. No increased work of breathing, no retractions or nasal flaring. Back: No spinal tenderness. No costovertebral tenderness. Full range of motion. Skin: Warm, dry with normal turgor. Normal color with no rashes, no lesions, and no evidence of cellulitis. MS/ Extremity: Pulses equal, no cyanosis. Neurovascular intact. Full, normal range of motion. Neuro: Awake and alert, GCS 15, oriented to person, place, time, and situation. Cranial nerves II-XII grossly intact. Motor strength 5/5 in all extremities. Sensory grossly intact. Cerebellar exam normal. Normal gait. Psych: Awake, alert, with orientation to person, place and time. Behavior, mood, and affect are within normal limits. 10:54 Abdomen/GI: Inspection: abdomen appears normal, Bowel sounds: active, Palpation: soft, mild abdominal tenderness, in the anterior aspect of right lateral abdomen, right upper quadrant and right lower quadrant. Vital Signs: 09:16 BP 166 / 97; Pulse 94; Resp 18; Temp 98.7(O); Pulse Ox 97% on R/A; Weight 97.52 kg (R); tw2 Height 5 ft. 5 in. (165.10 cm); Pain 9/10; 12:00 BP 126 / 85; Pulse 73; Resp 17; Temp 98.7; Pulse Ox 98% on R/A; Pain 3/10; sg 13:00 BP 113 / 69; Pulse 73; Resp 17; Pulse Ox 97% on R/A; sg 09:16 Body Mass Index 35.78 (97.52 kg, 165.10 cm) tw2 MDM: 10:54 Data reviewed: vital signs, nurses notes, lab test result(s), radiologic studies. kdr Counseling: I had a detailed discussion with the patient and/or guardian regarding: the historical points, exam findings, and any diagnostic results supporting the discharge/admit diagnosis, lab results, radiology results, the need for outpatient follow up. 11:07 Patient medically screened. [facility] 05/18 09:09 Order name: Basic Metabolic Panel; Complete Time: 10:18 [facility] 05/18 09:09 Order name: CBC with Diff; Complete Time: 09:48 [facility] 05/18 09:09 Order name: Creatinine for Radiology; Complete Time: 10:18 [facility] 05/18 09:09 Order name: Hepatic Function; Complete Time: 10:18 [facility] 05/18 11:26 Order name: Urine Dipstick--Ancillary (enter results) 05/18 11:29 Order name: CBC with Automated Diff [facility] 05/18 11:30 Order name: CBC with Automated Diff [facility] 05/18 12:55 Order name: Comprehensive Metabolic Panel [facility] 05/18 09:09 Order name: IV Saline Lock; Complete Time: 09:19 [facility] 05/18 09:09 Order name: Labs collected and sent; Complete Time: 09: kdr 05/18 09:48 Order name: CT Stone Protocol; Complete Time: 10:59 [facility] 05/18 11:29 Order name: NPO EDMS 05/18 11:29 Order name: Urine Dipstick-Ancillary (obtain specimen); Complete Time: 11:29 05/18 12:55 Order name: Comprehensive Metabolic Panel EDMS Administered Medications: Drug: Zofran 4 mg Route: IVP; Site: left antecubital; tw2 10:21 Follow up: Response: No adverse reaction sg : Drug: NS 0.9% 1000 ml Route: IV; Rate: 1 bolus; Site: left antecubital; tw2 09:28 Drug: morphine 4 mg Route: IVP; Site: left antecubital; tw2 10:21 Follow up: Response: No adverse reaction; Pain is decreased; RASS: Alert and Calm (0) 11:19 Drug: fentaNYL (PF) 50 mcg Route: IVP; Site: left antecubital; sg 12:00 Follow up: Response: No adverse reaction; Pain is decreased; RASS: Alert and Calm (0) Disposition: 05/18/19 11:07 Hospitalization ordered by Cee Blank for Observation. Preliminary diagnosis is Right renal calculus in the proximal ureter with mild right hydronephrosis. Failed outpatient treatment. - Bed requested for Telemetry/MedSurg (observation). - Status is Observation. bd - Condition is Fair. - Problem is an acute exacerbation. - Symptoms have improved. UTI on Admission? No Signatures: Dispatcher [employer] EDMS Cynthia Krueger Yessi Duarte RN RN Luis Alberto Kidd RN RN Iain Schmidt MD MD [facility] Verna Harris RN RN tw2 Corrections: (The following items were deleted from the chart) 12:54 11:29 Basic Metabolic Panel ordered. EDMT EDMS 12:54 11:29 Basic Metabolic Panel ordered. EDMT EDMS 12:54 11:30 Lipase ordered. EDMS EDMS 12:54 11:30 Lipase ordered. EDMS EDMS 12:54 11:30 Liver (Hepatic) Function ordered. EDMT EDMS 12:54 11:30 Liver (Hepatic) Function ordered. EDMS EDMS 13:46 11:07 Hospitalization Ordered by Cee Blank MD for Observation. Preliminary dw diagnosis is Right renal calculus in the proximal ureter with mild right hydronephrosis. Failed outpatient treatment. Bed requested for Telemetry/MedSurg (observation). Status is Observation. Condition is Fair. Problem is an acute exacerbation. Symptoms have improved. UTI on Admission? No. kdr 14:18 13:46 05/18/2019 11:07 Hospitalization Ordered by Cee Blank MD for Observation. bd Preliminary diagnosis is Right renal calculus in the proximal ureter with mild right hydronephrosis. Failed outpatient treatment. Bed requested for Telemetry/MedSurg (observation). Status is Observation. Condition is Fair. Problem is an acute exacerbation. Symptoms have improved. UTI on Admission? No. dw
[2019-05-18] MEDS ORDERED: FENTANYL CITR 100 MCG/2 ML ONE ×2 (11:14→15:42)
[2019-05-18] MEDS ORDERED: FENTANYL CITR 100 MCG/2 ML IV PRN (11:23)
[2019-05-18] MEDS ORDERED: ONDANSETRON 4 MG/2 ML VIAL IV PRN (11:23)
[2019-05-18] MEDS ORDERED: ACETAMINOPHEN 500 MG TAB PO PRN (11:23)
[2019-05-18 11:32] LABS: Urine Blood 2+ (NEG); Urine Glucose NEGATIVE (NEG); Urine Protein NEGATIVE (NEG); Urine Specific Gravity 1.015 (1.005-1.030); Urine pH 6.5 (5.0-7.0)
[2019-05-18] MEDS ORDERED: D5 0.45 NS 1,000 ML IV SCH (12:00)
--- NOTE | 2019-05-18 14:16 | P.HP ---
Certification for Inpatient Patient admitted to: Observation With expected LOS: <2 Midnights Patient will require the following post-hospital care: None Practitioner: I am a practitioner with admitting privileges, knowledge of patient current condition, hospital course, and medical plan of care. Services: Services provided to patient in accordance with Admission requirements found in Title 42 Section 412.3 of the Code of Federal Regulations Patient History Date of Service: 05/18/19 Reason for admission: Right flank pain History of Present Illness: This is a 39-year-old male with significant past medical history presented to the ED complaining of having some right flank pain. Patient stated that his right flank pain started about 4 days ago and has got progressively worse. Patient was recently seen here in the ER on 05/15/2019 was found to have kidney stone was sent home on Flomax and other medication. However this symptoms did get worse and thus he decided to come back to the ER. Patient stated that he has had multiple kidney stones in the past and he knows when it is getting worse. Patient currently denies having any fever chills nausea vomiting or any other associated symptoms at this time. Patient had abdominal CT done here in the ER which was consistent with 4 mm nephrolithiasis along with hydronephrosis and thus was admitted for further care Allergies droperidol [From Inapsine] Allergy (Intermediate, Verified 06/21/14 00:14) Itching/Hives/Rash erythromycin base [Erythromycin Base] Allergy (Intermediate, Verified 06/21/14 00:14) Itching/Hives/Rash Home Medications: Amox/Clavulanate [Augmentin 875-125 Tab] 1 each PO BID #14 tab 06/21/14 Naproxen [Naprosyn] 500 mg PO BID #10 tablet 06/21/14 - Past Medical/Surgical History Diabetic: No - Family History Mother -: Heart disease, Hypertension, Diabetes Father -: Heart disease, Cancer Sister -: Heart disease - Social History Alcohol use: No CD- Drugs: No Caffeine use: Yes Review of Systems 10-point ROS is otherwise unremarkable Physical Examination - Physical Exam General: Alert, In no apparent distress HEENT: Atraumatic, PERRLA, Mucous membr. moist/pink, EOMI, Sclerae nonicteric Neck: Supple, 2+ carotid pulse no bruit, No LAD, Without JVD or thyroid abnormality Respiratory: Clear to auscultation bilaterally, Normal air movement Cardiovascular: Regular rate/rhythm, Normal S1 S2 Gastrointestinal: Normal bowel sounds, No tenderness Musculoskeletal: No tenderness Integumentary: No rashes Neurological: Normal gait, Normal speech, Normal strength at 5/5 x4 extr, Normal tone, Normal affect Lymphatics: No axilla or inguinal lymphadenopathy - Studies Laboratory Data (last 24 hrs) 05/18/19 09:19: Creatinine 1.05 05/18/19 09:19: WBC 9.2 D, Hgb 15.1, Hct 43.1, Plt Count 322 05/18/19 09:19: Sodium 141, Potassium 3.8, BUN 12, Creatinine 1.09, Glucose 97, Total Bilirubin 0.3, AST 22, ALT 34, Alkaline Phosphatase 91 Assessment and Plan - Problems (Diagnosis) (1) Nephrolithiasis Current Visit: Yes Status: Acute Plan: Patient with past medical history of nephrolithiasis -abdominal CT with right-sided 4 mm stone along with mild hydronephrosis -urology consulted. Appreciated recommendations -keep patient NPO at this time for possible procedure today -will follow up with urology postprocedure may be able to discharge patient home if doing well (2) Hydronephrosis Current Visit: Yes Status: Acute Plan: Hydronephrosis most likely secondary to nephrolithiasis -urology is consulted awaiting recommendations -will monitor patient closely Qualifiers: Hydronephrosis type: with ureteral calculous obstruction Qualified Code(s) : N13.2 - Hydronephrosis with renal and ureteral calculous obstruction - Plan Admit patient for further care Discharge Plan: Home Plan to discharge in: 48 Hours - Advance Directives Does patient have a Living Will: No Does patient have a Durable POA for Healthcare: No - Code Status/Comfort Care Code Status Assessed: Yes Critical Care: No
[2019-05-18] MEDS: NA CHLORIDE 0.9% 1,000 ML IV SCH ×2 (15:10→22:34)
[2019-05-18] MEDS ORDERED: PROPOFOL 200 MG/20 ML VIAL IV ONE (15:41)
[2019-05-18 15:42] VITALS: BMI 34.7
[2019-05-18] MEDS ORDERED: LIDOCAINE 1% MPF 5 ML VIAL ONE (15:42)
[2019-05-18] MEDS ORDERED: GENTAMICIN 100 MG/100 ML BAG 100 ML IV ONE (15:47)
[2019-05-18] MEDS ORDERED: KETOROLAC 30 MG/ML INJ ONE (16:11)
[2019-05-18] MEDS ORDERED: dexAMETHasone 10 MG/ML VIAL ONE (16:12)
[2019-05-18] MEDS ORDERED: Mastisol Adhesive Liq ONE (16:22)
[2019-05-18] MEDS: HYDROMORPHONE HCL 1 MG/ML INJ ONE ×4 (16:58→17:15)
--- NOTE | 2019-05-18 17:35 | RAD REPORT ---
EXAM DESCRIPTION: RAD - Urethrocystogrphy Retrograde - 05/18/2019 4:53 pm CLINICAL HISTORY: ICD N 20.0 FINDINGS: 10 fluoroscopic spot images obtained. Fluoroscopy time 0.32 minutes Right ureter was cannulated and contrast administered. Subsequently a ureteral stent was placed. Exa mination was performed by
[2019-05-18] MEDS: TRAMADOL HCL 50 MG TAB PO PRN (19:07)
--- NOTE | 2019-05-18 19:12 | CON ---
History Of Present Illness: Pleasant 39-year-old gentleman with history of kidney stones, has not passed any recently, but began to have right-sided pain last Thursday about 4 days ago. He came to the emergency room. Scan showing a stone in the right upper ureter. He was sent home, never really followed up until the flank pain presented again, severe in nature enough to bring him to the emergency room. Pain does not radiate. Symptoms occurred suddenly prior to arrival in the emergency room. He said the symptoms were not relieved by anything. His pain was poorly controlled in the ER and repeat CT scan showed a 4 mm stone in right upper ureter by L3. We decided to go ahead and admit the patient since he has been here twice within the last [address] a stent. Later on, he can have an ESWL done. Allergies: DROPERIDOL, ERYTHROMYCIN BASE. Home Medications: _, pravastatin, lisinopril, tramadol, Flomax. Past Medical History: Hypertension, high cholesterol, ADD, ADHD. Past Surgical History: None. Immunizations: All up to date. Review of Systems: A 10-point review of systems otherwise negative. Constitutional: Negative for fever, chills, weight loss. Eyes: Negative for injury. ENT: Negative for injury, pain, or discharge. Neck: Negative for injury, pain, or swelling. Cardiovascular: Negative for chest pain, palpitation, or edema. Respiratory: Negative for shortness of breath or cough. Back: Negative for injury or pain. : Negative for any injury, bleeding, discharge, or swelling. Musculoskeletal: Negative for injury or deformity. Skin: Negative for injury, rash, or discoloration. Neurologic: Negative for headache or weakness, numbness, tingling, or seizure. Psychiatric: Negative for depression, anxiety, or suicidal ideation. Allergies and Immunologic: Negative for hives or rashes. Endocrine: Negative for neck swelling, polydipsia. Hematologic and Lymphatics: Negative for lymph nodes. Abdomen: Positive for nausea and flank pain, but negative for abdominal pain or diarrhea. Physical Examination: General: Well-developed male in no acute distress. HEENT: Atraumatic, normocephalic. Heart: Normal S1, S2. Abdomen: Soft, nontender. Extremities: Normal range of motion. Radiological Studies And Laboratory Data: CT scan revealed 4 mm stone at the L4 -L3 interspace. Patient did not have a KUB today. He did have laboratories done. White count 9.2, H and H 15 and 43. Chemistry: Sodium 141, potassium 3.8, chloride 104, carbon dioxide 31, BUN 12, creatinine 1.1, GFR estimated to be 76, glucose 97, calcium 9.1, total bilirubin normal. LFTs normal. Urine study; blood 2+, nitrite negative, esterase negative. Assessment: A 4 mm stone in right upper ureter, not moving. Has caused the patient to visit the ER twice within the last 4 days. Plan: Plan is to do cystoscopy, stent placement. Later on, patient will need to be preop for ESWL on the right. Patient was given all general information, alternatives, and risks and informed consent was obtained. No coercion. The patient's mother and were present in the room along with the nurse. CAROL ANN/YAZ Voice ID: [id number] Report ID: [id number] ADILIA
[2019-05-18] MEDS ORDERED: HYDROMORPHONE HCL 1 MG/ML INJ IV ONE (22:20)
[2019-05-19 02:20] VITALS: O2SAT 93
[2019-05-19] MEDS: TRAMADOL HCL 50 MG TAB PO PRN (03:06)
[2019-05-19] MEDS ORDERED: OXYBUTYNIN ER 5 MG TAB PO ONE (06:39)
[2019-05-19 06:55] LABS: Absolute Lymphocytes (CBC) 1.2 K/uL (0.7-4.9); Basophils % 0.2 % (0-1.3); RBC Red Blood Cell Count 4.95 M/uL (4.33-5.43)
[2019-05-19 06:56] LABS: Albumin 3.8 g/dL (3.4-5.0); Bilirubin Total 0.4 mg/dL (0.2-1.0); Potassium 5.1 mmol/L (3.5-5.1); Protein, Total 7.5 g/dL (6.4-8.2)
--- NOTE | 2019-05-19 07:42 | RAD REPORT ---
EXAM DESCRIPTION: RAD - Abdomen 1 View (KUB) - 05/19/2019 7:33 am CLINICAL HISTORY: Pain Recent right ureteral stent placement, recent obstructing calculus diagnosis. COMPARISON: Stone Protocol dated 05/18/2019; Urethrocystogrphy Retrograde dated 05/18/2019 FINDINGS: Stent is in good position. Previously detailed UPJ region 4 mm stone is not clearly seen o n this examination. No stone or stone fragment along the course of the stent. Bowel gas pattern is no nspecific. Moderate stool volume in the colon. No obstruction, free air, pneumatosis or ileus finding seen. No significant bony findings IMPRESSION: Right ureteral stent is in good position. No stone or stone fragment seen along the course of the stent.
[2019-05-19] MEDS ORDERED: KETOROLAC 30 MG/ML INJ IV ONE (08:42)
[2019-05-19 10:08] LABS: Blood Morphology Comment NOT SEEN (NOT SEEN); Platelet Estimate ADEQ; Urine White Blood Cell Casts OK
--- NOTE | 2019-05-19 11:47 | RAD REPORT ---
EXAM DESCRIPTION: CT - Stone Protocol - 05/19/2019 11:13 am CLINICAL HISTORY: Flank pain. plain stone COMPARISON: Stone Protocol dated 05/18/2019 TECHNIQUE: Axial images were obtained without oral or IV contrast. Lack of contrast limits solid org an and vascular assessment. The [id number] spans the entirety of the system partially obscuring uppermost abdomen and lung bases. Coronal reformatted images were obtained and reviewed. All CT scans are performed using dose optimization technique as appropriate and may include automated exposure control or mA/KV adjustment according to patient size. FINDINGS: The lower lung aly are clear. Imaged portions of the liver and spleen show no suspicious findings on non-contrast imaging. The panc reas and adrenal glands are normal. No pathologic lymphadenopathy in the abdomen or pelvis. Right double-J stent is in place in expected positioning and alignment. The previously noted small ca lculus within the right ureter is not clearly identified any longer. Small amount of air is present i n the urinary bladder. No bowel obstruction, free air, free fluid or abscess. Normal appendix noted. No significant bony abnormality. IMPRESSION: Right double-J stent is in appropriate positioning and alignment. No stone is seen along the stent.
--- NOTE | 2019-05-19 13:26 | PN ---
Patient had a bad night, last night after stent was placed, he was unable to sleep since 3 a.m., requiring IV pain medication [id number], very uncomfortable, straining in bed with back spasms. We did a KUB, showed the stent was in good position and I did a CT to see if the stone has crushed up because it felt like a uric acid stone. CT did not show any stone along the stent, so we had to remove his stent. On removing the stent, felt like there was some particles inside the ureter, but his stent came out okay. He has a very sensitive urethra and was in pain right after removing the stent. He settled down a few minutes after and seems to have a very sensitive urethra today. We will observe him and see how he does and hopefully, he can go home later. CAROL ANN/YAZ Voice ID: [id number] Report ID: [id number] ADILIA
[2019-05-19 14:23] VITALS: BP 158/106; TEMP 98
--- NOTE | 2019-05-19 14:23 | P.SSS ---
Patient History Date of Service: 05/19/19 Reason for admission: Right flank pain History of Present Illness: This is a 39-year-old male with significant past medical history presented to the ED complaining of having some right flank pain. Patient stated that his right flank pain started about 4 days ago and has got progressively worse. Patient was recently seen here in the ER on 05/15/2019 was found to have kidney stone was sent home on Flomax and other medication. However this symptoms did get worse and thus he decided to come back to the ER. Patient stated that he has had multiple kidney stones in the past and he knows when it is getting worse. Patient currently denies having any fever chills nausea vomiting or any other associated symptoms at this time. Patient had abdominal CT done here in the ER which was consistent with 4 mm nephrolithiasis along with hydronephrosis and thus was admitted for further care Allergies droperidol [From Inapsine] Allergy (Intermediate, Verified 06/21/14 00:14) Itching/Hives/Rash erythromycin base [Erythromycin Base] Allergy (Intermediate, Verified 06/21/14 00:14) Itching/Hives/Rash Home Medications: Lisdexamfetamine Dimesylate [Vyvanse] 1 cap PO DAILY 05/18/19 Metoprolol Tartrate [Lopressor*] 1 tab PO BID 05/18/19 - Past Medical/Surgical History Has patient received pneumonia vaccine in the past: No Diabetic: No -: Hypertension -: high cholesterol -: ADHD - Family History Mother -: Heart disease, Hypertension, Diabetes Father -: Heart disease, Cancer Sister -: Heart disease - Social History Smoking Status: Current every day smoker Alcohol use: No CD- Drugs: No Caffeine use: Yes Place of Residence: Home Review of Systems 10-point ROS is otherwise unremarkable Physical Examination - Vital Signs Temperature: 98 F Blood Pressure: 158/106 Pulse: 110 Respirations: 20 Pulse Ox (%): 98 - Physical Exam General: Alert, In no apparent distress HEENT: Atraumatic, PERRLA, Mucous membr. moist/pink, EOMI, Sclerae nonicteric Neck: Supple, 2+ carotid pulse no bruit, No LAD, Without JVD or thyroid abnormality Respiratory: Clear to auscultation bilaterally, Normal air movement Cardiovascular: Regular rate/rhythm, Normal S1 S2 Gastrointestinal: Normal bowel sounds, No tenderness Musculoskeletal: No tenderness Integumentary: No rashes Neurological: Normal gait, Normal speech, Normal strength at 5/5 x4 extr, Normal tone, Normal affect Lymphatics: No axilla or inguinal lymphadenopathy - Diagnosis (Problem(s)) (1) Nephrolithiasis Current Visit: Yes Status: Acute Plan: Patient with past medical history of nephrolithiasis -abdominal CT with right-sided 4 mm stone along with mild hydronephrosis -urology consulted. Appreciated recommendations -S.P stent placement. Did well. Stone passed and Stent was removed due to increasing pain. -Pt was monitored for next 8hrs did well and thus DC home (2) Hydronephrosis Current Visit: Yes Status: Resolved Qualifiers: Hydronephrosis type: with ureteral calculous obstruction Qualified Code(s) : N13.2 - Hydronephrosis with renal and ureteral calculous obstruction - Disposition Disposition: ROUTINE DISCHARGE Condition: GOOD Diet: Regular Activity: Ad leonel
== END 2019-05-19 15:18 | disposition home or self-care (01) ==
LOC: SUATTDRO 09:03 → ER 09:03 → ERHOLD 12:43 → 2ND 14:11
PROVIDERS: ADMIT Family Medicine; ATTEND Family Medicine
PROC: 0T768DZ Dilation of Right Ureter with Intraluminal Device, Via Natural or Artificial Opening Endoscopic (ICD-10-PCS; principal; 2019-05-18 15:00)
DX: N13.2 Hydronephrosis with renal and ureteral calculous obstruction (principal); F17.200 Nicotine dependence, unspecified, uncomplicated
CPT/HCPCS: 85025 ×2; 80048; 36415; 80076; 81003; 80053; 76377 ×2; 74176 ×2; 74018; 74450; 51610; 96375; 96374; 99285; 52332; J2704; J3010 ×3; J1100; J1170 ×3; J1580; G0378 ×4; J7030 ×5; J2405 ×2

== ENCOUNTER 2020-12-18 20:51 | Emergency (ER) | payer BC ==
--- OUTSIDE RECORDS SUMMARY | 2020-12-18 20:54 | XMS REPORT | Continuity of Care Document ---
:1980 Author Organization [facility] t Address [address] [place] [address] Care Team Providers Name Role Phone Unavailable Unavailable Unavailable Problems This patient has no known problems. Allergies, Adverse Reactions, Alerts Allergy Allergy Status Severity Reaction(s) Onset Inactive Treating Comm ents Source Name Type Date Date Clinician Erythrom Adverse Active Info Not [facility] Reaction Available [facility] Clin[facility] Medications Ordered Filled Start Stop Current Ordering Indication Dosage Frequency Signature Comments Components Source Medication Medication Date Date Medication? Clinician (SIG) Name Name Danyellee Danyellee Yes Na Tidwell [address] [facility] Procedures This patient has no known procedures. Encounters Start End Encounter Admission Attending Care Care Encounter Source Date/Time Date/Time Type Type Clinicians Facility Department ID 2020-10-26 2020-10-26 Outpatient [facility] [id number] [facility] 2020-08-10 2020-08-10 Outpatient [facility] [id number] [facility] 2020-07-23 2020-07-23 Outpatient [facility] [id number] [facility] 2020-06-23 2020-06-23 Outpatient [facility] [id number] [facility] 2020-06-22 2020-06-22 Outpatient [facility] [id number] [facility] 2020-05-22 2020-05-22 Outpatient [facility] [id number] [facility] 2020-04-23 2020-04-23 [facility] [id number] [facility] 11:34:00 11:34:00 t Chelan [employer] [facility] [place] [place] Medicine Outpati ent Clinics 2020-04-20 2020-04-20 [facility] [id number] 10:00:00 10:00:00 t [email or web address] [facility] [place] [place] [facility] Outpat[facility] Clinics 2020-03-23 2020-03-23 [facility] [id number] [facility] 13[facility]00:00 13:00:00 t Chelan [employer] [facility] [place] [place] Medicine Outpat[facility] Clinics 2020-02-17 2020-02-17 [facility] [id number] 09:40:00 09:40:00 t [email or web address] [facility] [place] [place] [facility] Outpat[facility] Clinics 2020-02-10 2020-02-10 [facility] [id number] 08:15:00 08:15:00 t [email or web address] [facility] Medicine Medicine Outpati ent Clinics 2020-01-24 2020-01-24 [facility] [id number] [facility] 11:59:00 11:59:00 t Chelan [employer] [facility] [place] [place] Medicine Outpati ent Clinics 2019-12-16 2019-12-16 [facility] [id number] 09:00:00 09:00:00 t Chelan [employer] [facility] [place] [place] Medicine Outpati ent Clinics 2019-10-20 2019-10-20 [facility] [id number] 15:15:00 15:15:00 t Chelan [employer] [facility] Outpat[facility] Clinics 2019-10-06 2019-10-06 [facility] [id number] 16:35:00 16:35:00 t Chelan Chelan [employer] [facility] Medicine l Medicine Outpati ent Clinics 2019-09-09 2019-09-09 [facility] [id number] 10:00:00 10:00:00 t Chelan Chelan [employer] [address] [facility] Medicine l Medicine Outpati ent Clinics 2019-08-12 2019-08-12 [facility] [id number] 10:00:00 10:00:00 t Chelan Chelan [employer] [facility] Medicine l Medicine Outpati ent Clinics 2019-07-15 2019-07-15 [facility] [id number] 09:40:00 09:40:00 t Chelan Chel[employer] [address] [facility] Medicine l Medicine Outpati ent Clinics 2019-06-17 2019-06-17 [facility] [id number] 08:40:00 08:40:00 t Chelan Chel[employer] [address] [facility] Medicine l Medicine Outpati ent Clinics 2019-05-13 2019-05-13 [facility] [id number] [facility] 11:20:00 11:20:00 t Chelan [employer] [facility] Medicine l Medicine Outpati ent Clinics 2019-04-01 2019-04-01 [facility] [id number] 10:00:00 10:00:00 t Chelan Chel[employer] [facility] Medicine l Medicine Outpati ent Clinics 2019-03-04 2019-03-04 [facility] [id number] 09:20:00 09:20:00 t Chelan Chel[employer] [facility] Medicine l Medicine Outpati ent Clinics 2018-12-03 2018-12-03 [facility] [id number] [facility] 11:07:00 11:07:00 t Chelan Chelan [employer] [address] [facility] Medicine l Medicine Outpati ent Clinics 2018-12-03 2018-12-03 [facility] [id number] [facility] 11:00:00 11:00:00 t Chelan Chelan [employer] [address] [facility] Medicine l Medicine Outpati ent Clinics 2018-12-03 2018-12-03 [facility] [id number] 10:41:00 10:41:00 t Chelan Chelan [employer] - Drive [facility] l Medicine Outpati ent Clinics 2018-10-29 2018-10-29 [facility] [id number] 09:00:00 09:00:00 t Chelan Chelan [employer] - [address] [facility] [place] [place] Medicine Outpati ent Clinics 2018-09-30 2018-09-30 [facility] [id number] 15:30:00 15:30:00 t Chelan Chelan [employer] [address] [facility] l Medicine Outpati ent Clinics 2018-08-20 2018-08-20 [facility] [id number] 08:15:00 08:15:00 t Chelan [employer] [facility] [place] [place] Medicine Outpati ent Clinics 2018-06-18 2018[facility]06-[address] [facility] [id number]00 [facility] Outpati ent Clinics 2018-04-16 2018-04-16 [facility] [id number] 11:15:00 11:15:00 t Chelan [employer] [facility] Medicine l Medicine Outpati ent Clinics 2018-03-12 2018-03-12 [facility] [id number] [facility] 10:30:00 10:30:00 t Chelan Chelan [employer] - [facility] [place] [place] Medicine Outpati ent Clinics 2018-02-12 2018-02-12 [facility] [id number] 09:30:00 09:30:00 t Chelan Chelan [employer] [address] [facility] Medicine l Medicine Outpati ent Clinics 2018-01-11 2018-01-11 [facility] [id number] 11:00:00 11:00:00 t Chelan Chel[employer] - Drive [facility] l Medicine Outpati ent Clinics 2017-12-11 2017-12-11 [facility] [id number] 09:00:00 09:00:00 t Chelan Chelan [employer] - Drive [facility] ent [facility] 2017-11-13 2017-11-13 Outpatient lAma Ocasio [id number] [facility] 09[facility] 09:45:00 t WEISSENHAUS [facility] ent [facility] Results This patient has no known results.
[2020-12-18] MEDS ORDERED: dexAMETHasone 10 MG/ML VIAL ONE (22:52)
[2020-12-18] MEDS ORDERED: ONDANSETRON 4 MG/2 ML VIAL ONE (22:52)
[2020-12-18] MEDS ORDERED: CLINDAMYCIN 900MG/D5W 900 MG/50 ML IVPB IV ONE (22:53)
[2020-12-18] MEDS ORDERED: MEPERIDINE HCL 25 MG/ML SYR ONE (22:53)
--- NOTE | 2020-12-18 23:15 | ER ---
Nurse's Notes [facility] Name: Chano Zacarias Age: 40 yrs Sex: Male : 1980 Arrival Date: 12/18/2020 Time: 20:51 Bed 4 Private MD: Diagnosis: Dental caries;Buccal Cellulitis Presentation: 12/18 21:51 Chief complaint: Patient states: Left lower tooth bother x 2 weeks, almost completed ca1 ABX for the toothache and has dentist appointment tomorrow. But today, L side of face started swelling, and now in a lot of pain. Coronavirus screen: Client denies travel out of the [place] in the last 14 days. At this time, the client does not indicate any symptoms associated with coronavirus-19. Ebola Screen: Patient negative for fever greater than or equal to 101.5 degrees Fahrenheit, and additional compatible Ebola Virus Disease symptoms Patient denies exposure to infectious person. Patient denies travel to an Ebola-affected area in the 21 days before illness onset. No symptoms or risks identified at this time. Initial Sepsis Screen: Does the patient meet any 2 criteria? No. Patient's initial sepsis screen is negative. Does the patient have a suspected source of infection? No. Patient's initial sepsis screen is negative. Risk Assessment: Do you want to hurt yourself or someone else? Patient reports no desire to harm self or others. Onset of symptoms was December 18, 2020. 21:51 Method Of Arrival: Ambulatory ca1 21:51 Acuity: SCARLET 3 ca1 Triage Assessment: 22:38 EENT: Reports TOOTHACHE. rv 22:38 General: Behavior is calm, cooperative. rv Historical: - Allergies: 21:54 erythromycin base; ca1 21:54 Droperidol; ca1 - Home Meds: 21:54 Metoprolol Tartrate Oral [Active]; rosuvastatin 40 mg oral tab 1 tab once daily ca1 [Active]; Vyvanse Oral [Active]; - PMHx: 21:54 ADD/ADHD; High Cholesterol; Hypertension; ca1 - PSHx: 21:54 None; ca1 - Immunization history:: Flu vaccine is not up to date. - Social history:: Smoking status: Patient reports the use of cigarette tobacco products, smokes one-half pack cigarettes per day. - Family history:: not pertinent. - Hospitalizations: : No recent hospitalization is reported. Screenin:24 Abuse screen: Denies threats or abuse. Nutritional screening: No deficits noted. ea Tuberculosis screening: No symptoms or risk factors identified. Fall Risk None identified. Assessment: 22:37 General: Appears comfortable. Pain: Complains of pain in TOOTHACHE. Neuro: Level of rv Consciousness is awake, alert, obeys commands, Oriented to person, place, time, situation. Cardiovascular: Patient's skin is warm and dry. Respiratory: Airway is patent Respiratory effort is even, unlabored. EENT: No signs and/or symptoms were reported regarding the EENT system. 23:19 Reassessment: Patient and/or family updated on plan of care and expected duration. Pain ea level reassessed. Patient is alert, oriented x 3, equal unlabored respirations, skin warm/dry/pink. Discharge instruction given to patient verbalized the understanding of instruction. Pt left ED ambulatory accompanied by family Patient states feeling better. Vital Signs: 21:51 BP 158 / 103; Pulse 101; Resp 18 S; Temp 98.8(O); Pulse Ox 98% on R/A; Weight 104.33 kg ca1 (R); Height 5 ft. 5 in. (165.10 cm) (R); Pain 8/10; 23:06 BP 162 / 99; Pulse 98; Resp 18; Pulse Ox 98% on R/A; ea 21:51 Body Mass Index 38.27 (104.33 kg, 165.10 cm) ca1 ED Course: 20:51 Patient arrived in ED. ag3 21:53 Triage completed. ca1 21:54 Arm band placed on right wrist. ca1 22:15 Denton Coon MD is Attending Physician. rn 22:23 Skyler Weiss RN is Primary Nurse. rv 22:26 Patient has correct armband on for positive identification. Bed in low position. Call ea light in reach. 22:36 Inserted saline lock: 20 gauge in left hand, using aseptic technique. rv 22:38 No provider procedures requiring assistance completed. rv 23:15 IV discontinued, intact, bleeding controlled, No redness/swelling at site. Pressure ea dressing applied. Administered Medications: 22:36 Drug: Demerol (meperidine) 25 mg Route: IVP; Site: left hand; rv 23:15 Follow up: Response: No adverse reaction ea 22:36 Drug: Zofran (Ondansetron) 4 mg Route: IVP; Site: left hand; rv 23:15 Follow up: Response: No adverse reaction ea 22:37 Drug: Clindamycin 900 mg Route: IVPB; Infused Over: 30 mins; Site: left hand; rv 23:15 Follow up: Response: No adverse reaction; IV Status: Completed infusion ea 22:37 Drug: Decadron - Dexamethasone 10 mg Route: IVP; Site: left hand; rv 23:15 Follow up: Response: No adverse reaction ea Outcome: 23:14 Discharge ordered by . rn 23:20 Discharged to home ambulatory, with family. ea 23:20 Condition: stable 23:20 Discharge instructions given to patient, Instructed on discharge instructions, follow up and referral plans. medication usage, Demonstrated understanding of instructions, follow-up care, medications, Prescriptions given X 3. 23:20 Patient left the ED. ea Signatures: Denton Coon MD MD rn Antunez, Elena, RN RN ea Vicente, Ronaldo RN Emilie Huizar 3 Jade Duff RN RN ca1
--- NOTE | 2020-12-18 23:15 | EDPHYS ---
Physician Documentation [facility] Name: Chano Zacarias Age: 40 yrs Sex: Male : 1980 Arrival Date: 12/18/2020 Time: 20:51 Bed 4 Private MD: ED Physician Denton Coon HPI: 12/18 23:07 This 40 yrs old Male presents to ER via Ambulatory with complaints of rn Toothache. 23:07 The patient presents with pain, swelling. The problem is located in the left lower rn teeth. Onset: The symptoms/episode began/occurred 2 week(s) ago. Duration: The symptoms are continuous. Modifying factors: The symptoms are alleviated by nothing, the symptoms are aggravated by chewing. Associated signs and symptoms: Pertinent positives: pain, swelling, Pertinent negatives: fever. Severity of symptoms: At their worst the symptoms were mild, in the emergency department the symptoms are unchanged. The patient has not experienced similar symptoms in the past. The patient has been recently seen by a physician:. Reports 2 weeks of dental problems and pain, seen by 2 different dentists, has taken amoxicillin twice and not improving. Noticed some swelling to left face. No fever. Has appt with dentist in AM. . Historical: - Allergies: 21:54 erythromycin base; ca1 21:54 Droperidol; ca1 - Home Meds: 21:54 Metoprolol Tartrate Oral [Active]; rosuvastatin 40 mg oral tab 1 tab once daily ca1 [Active]; Vyvanse Oral [Active]; - PMHx: 21:54 ADD/ADHD; High Cholesterol; Hypertension; ca1 - PSHx: 21:54 None; ca1 - Immunization history:: Flu vaccine is not up to date. - Social history:: Smoking status: Patient reports the use of cigarette tobacco products, smokes one-half pack cigarettes per day. - Family history:: not pertinent. - Hospitalizations: : No recent hospitalization is reported. ROS: 23:07 Constitutional: Negative for fever, chills, and weight loss, Eyes: Negative for injury, rn pain, redness, and discharge, ENT: + dental pain and facial swelling Neck: Negative for injury, pain, and swelling. Exam: 23:07 Constitutional: This is a well developed, well nourished patient who is awake, alert, rn and in no acute distress. Head/Face: Atraumatic. + mild swelling left buccal space, + induration, no abscess or fluctuance. Eyes: Pupils equal round and reactive to light, extra-ocular motions intact. Lids and lashes normal. Conjunctiva and sclera are non-icteric and not injected. Cornea within normal limits. Periorbital areas with no swelling, redness, or edema. ENT: Poor dentition, no oral abscess or swelling intraorally. Neck: Trachea midline, no masses palpated Vital Signs: 21:51 BP 158 / 103; Pulse 101; Resp 18 S; Temp 98.8(O); Pulse Ox 98% on R/A; Weight 104.33 kg ca1 (R); Height 5 ft. 5 in. (165.10 cm) (R); Pain 8/10; 23:06 BP 162 / 99; Pulse 98; Resp 18; Pulse Ox 98% on R/A; ea 21:51 Body Mass Index 38.27 (104.33 kg, 165.10 cm) ca1 MDM: 22:15 Patient medically screened. rn 23:07 Differential diagnosis: dental caries, dental abscess, buccal cellulitis. Data rn reviewed: vital signs, nurses notes, and as a result, I will discharge patient. Counseling: I had a detailed discussion with the patient and/or guardian regarding: the historical points, exam findings, and any diagnostic results supporting the discharge/admit diagnosis, the need for outpatient follow up, to return to the emergency department if symptoms worsen or persist or if there are any questions or concerns that arise at home. Response to treatment: the patient's symptoms have mildly improved after treatment, and as a result, I will discharge patient. Special discussion: I discussed with the patient/guardian in detail that at this point there is no indication for admission to the hospital. It is understood, however, that if the symptoms persist or worsen the patient needs to return immediately for re-evaluation. Based on the history and exam findings, there is no indication for further emergent testing or inpatient evaluation. I discussed with the patient/guardian the need to see a dentist for further evaluation of the symptoms. ED course: Has dental f/u tomorrow, no evidence of abscess at this point. Will dc home with clindamycin, tramadol, and steroids. . 12/18 22:30 Order name: IV Start; Complete Time: 22:36 rn Administered Medications: 22:36 Drug: Demerol (meperidine) 25 mg Route: IVP; Site: left hand; rv 23:15 Follow up: Response: No adverse reaction ea 22:36 Drug: Zofran (Ondansetron) 4 mg Route: IVP; Site: left hand; rv 23:15 Follow up: Response: No adverse reaction ea 22:37 Drug: Clindamycin 900 mg Route: IVPB; Infused Over: 30 mins; Site: left hand; rv 23:15 Follow up: Response: No adverse reaction; IV Status: Completed infusion ea 22:37 Drug: Decadron - Dexamethasone 10 mg Route: IVP; Site: left hand; rv 23:15 Follow up: Response: No adverse reaction ea Disposition: 12/18/20 23:14 Discharged to Home. Impression: Dental caries, Buccal Cellulitis. - Condition is Stable. - Discharge Instructions: Cellulitis, Adult, Dental Pain. - Prescriptions for Clindamycin HCl 300 mg Oral Capsule - take 1 capsule by ORAL route every 6 hours for 10 days; 40 capsule. Ultram 50 mg Oral Tablet - take 1 tablet by ORAL route every 6 hours As needed; 15 tablet. Medrol (Mauro) 4 mg Oral Tablets, Dose Pack - take 1 tablet by ORAL route as directed - follow package instructions; 1 packet. - Medication Reconciliation Form, Thank You Letter, Antibiotic Education, Prescription Opioid Use form. - Follow up: Private Physician; When: Tomorrow; Reason: Recheck today's complaints, Re-evaluation by your physician. - Problem is an ongoing problem. - Symptoms have improved. Signatures: Denton Coon MD MD rn Antunez, Elena, RN RN ea Vicente, Ronaldo RN Jade Gonzalez RN NITIN ca1 Corrections: (The following items were deleted from the chart) 23:20 23:14 12/18/2020 23:14 Discharged to Home. Impression: Dental caries; Buccal ea Cellulitis. Condition is Stable. Forms are Medication Reconciliation Form, Thank You Letter, Antibiotic Education, Prescription Opioid Use. Follow up: Private Physician; When: Tomorrow; Reason: Recheck today's complaints, Re-evaluation by your physician. Problem is an ongoing problem. Symptoms have improved. rn
[2020-12-18 23:25] VITALS: TEMP 98.8; O2SAT 98
[2020-12-18 23:26] VITALS: BP 162/99
== END 2020-12-18 23:20 | disposition home or self-care (01) ==
LOC: ER 20:51
DX: K12.2 Cellulitis and abscess of mouth (principal); K02.9 Dental caries, unspecified; F17.210 Nicotine dependence, cigarettes, uncomplicated; F90.9 Attention-deficit hyperactivity disorder, unspecified type; E78.00 Pure hypercholesterolemia, unspecified; I10 Essential (primary) hypertension
CPT/HCPCS: J1100; J2175; J2405; 96365; 96375; 99283